=== PATIENT | male | born 1980 | race Caucasian/White ===

== ENCOUNTER → 2017-02-27 | Day surgery (SDC) | payer OTHER | END | disposition home or self-care (01) | LOC: FAS 10:41 | DX: L72.12 Trichodermal cyst (principal); G95.20 Unspecified cord compression; F17.210 Nicotine dependence, cigarettes, uncomplicated; F41.9 Anxiety disorder, unspecified; F43.10 Post-traumatic stress disorder, unspecified; Z90.49 Acquired absence of other specified parts of digestive tract; Z90.89 Acquired absence of other organs; Z88.5 Allergy status to narcotic agent; Z98.890 Other specified postprocedural states; Z79.899 Other long term (current) drug therapy | CPT/HCPCS: 88304; J0690; J1100; J1885; J2405; J2704; J3010 ==

== ENCOUNTER 2022-05-28 14:20 | Emergency (ER) | payer OTHER | END 2022-05-28 17:47 | disposition home or self-care (01) | LOC: FER 14:20 | DX: S61.511A Laceration without foreign body of right wrist, initial encounter (principal); F17.210 Nicotine dependence, cigarettes, uncomplicated; Z88.4 Allergy status to anesthetic agent; W20.8XXA Other cause of strike by thrown, projected or falling object, initial encounter; Y92.009 Unspecified place in unspecified non-institutional (private) residence as the place of occurrence of the external cause | CPT/HCPCS: 73110 ==